=== PATIENT | male | born 1990 | race Caucasian/White ===

== ENCOUNTER 2018-11-03 11:16 | Emergency (ER) | payer OTHER ==
[2018-11-03 11:23] VITALS: BP 100/51; PULSE 60; TEMP 98; BMI 27.4
--- NOTE | 2018-11-03 11:25 | PDOC ---
History of Present Illness - General Chief Complaint: Ear Problem Stated Complaint: ASTHMA/ LT EAR PAIN Time Seen by Provider: 11/03/18 11:22 History Source: Patient Exam Limitations: No Limitations Past History - Travel Traveled outside of the country in the last 30 days: No Close contact w/someone who was outside of country & ill: No - Past Medical History Allergies/Adverse Reactions: Allergies Allergy/AdvReac Type Severity Reaction Status Date / Time No Known Allergies Allergy Verified 11/03/18 11:59 Home Medications: Ambulatory Orders Albuterol 0.083% Nebulizer Dia [Ventolin 0.083% Nebulizer Soln -] 1 neb NEB Q4H #20 vial 11/03/18 Albuterol Sulfate Inhaler - [Ventolin HFA Inhaler -] 1 - 2 inh PO Q4H #1 inhaler 11/03/18 Budesonide/Formeterol Fumarate [SYMBICORT 160/4.5mcg -] 1 inh PO DAILY #1 cannister 11/03/18 Fluticasone Prop 0.05% Nasal [Flonase -] 1 - 2 spray NS DAILY #1 spray.pump 01/16 COPD: No - Immunization History Immunization Up to Date: Yes - Suicide/Smoking/Psychosocial Hx Smoking History: Never smoked Hx Alcohol Use: No Drug/Substance Use Hx: No Review of Systems - Review of Systems Able to Perform ROS?: Yes Comments:: 11/03/18 11:24 CONSTITUTIONAL: Absent: fever, chills, diaphoresis, generalized weakness, malaise, loss of appetite HEENT: Present: sore throat, rhinorrhea, R ear ache. Absent:nasal congestion, throat swelling, difficulty swallowing, mouth swelling, eye pain, visual Changes CARDIOVASCULAR: Absent: chest pain, loss of consciousness, palpitations, irregular heart rate, peripheral edema RESPIRATORY: Present: cough, wheezing Absent: shortness of breath, dyspnea with exertion, orthopnea, stridor, hemoptysis GASTROINTESTINAL: Absent: abdominal pain, abdominal distension, nausea, vomiting, diarrhea, constipation, melena, hematochezia GENITOURINARY: Absent: dysuria, frequency, urgency, hesitancy, hematuria, flank pain, genital pain MUSCULOSKELETAL: Absent: myalgia, arthralgia, joint swelling SKIN: Absent: rash, itching, pallor HEMATOLOGIC/IMMUNOLOGIC: Absent: easy bleeding, easy bruising, lymphadenopathy, frequent infections ENDOCRINE: Absent: unexplained weight gain, unexplained weight loss, heat intolerance, cold intolerance NEUROLOGIC: Absent: headache, focal weakness or paresthesias, dizziness, unsteady gait, seizure, mental status changes, bladder or bowel incontinence PSYCHIATRIC: Absent: anxiety, depression, suicidal or homicidal ideation, hallucinations. \ Is the patient limited Peruvian proficient: No *Physical Exam - Vital Signs Last Vital Signs Temp Pulse Resp BP Pulse Ox 98.0 F 60 17 100/51 L 98 11/03/18 11:20 11/03/18 11:20 11/03/18 11:20 11/03/18 11:20 11/03/18 11:20 - Physical Exam Comments: 11/03/18 11:25 GENERAL: Well developed, well nourished. Awake and alert. No acute distress. HEENT: Normocephalic, atraumatic. PERRLA, EOMI. No conjunctival pallor. Sclera are non- icteric. Moist mucous membranes. Oropharynx is clear. R TM is retracted without erythema. NECK: Supple. Full ROM. No JVD. Carotid pulses 2+ and symmetric, without bruits. No thyromegaly. No lymphadenopathy. CARDIOVASCULAR: Regular rate and rhythm. No murmurs, rubs, or gallops. Distal pulses are 2+ and symmetric. PULMONARY: No evidence of respiratory distress. Lungs with scattered expiratory wheezing b/ l. No rales or rhonchi. SKIN: Warm and dry. Normal capillary refill. No rashes. No jaundice. NEUROLOGICAL: Alert, awake, appropriate. Cranial nerves 2-12 intact. No deficits to light touch and temperature in face, upper extremities and lower extremities. No motor deficits in the in face, upper extremities and lower extremities. Normoreflexic in the upper and lower extremities. Normal speech. Toes are down- going bilaterally. Gait is normal without ataxia. PSYCHIATRIC: Cooperative. Good eye contact. Appropriate mood and affect. Medical Decision Making - Medical Decision Making 11/03/18 13:05 The patient is a 28-year-old male with past medical history of asthma, who presents to the emergency department today for cough and wheezing. Patient states that he has been going on for approximately 4 days. He states he's been using his rescue inhaler more than usual. He also admits to a sore throat, rhinorrhea and right earache. He states that since the weather is changing his symptoms have been acting up. Patient states that he has run out of his Solu- Medrol pump. Denies fevers, chills, productive cough, shortness of breath, nausea, vomiting, chest pain and diarrhea. Pt has been hospitalized for his asthma in 2012. Never been intubated. A/P: Asthma exacerbation On exam right ear TM is retracted without erythema. Lungs with scattered wheezing bilaterally. Rapid strep was obtained; it is negative at this time. 2 DuoNeb's and steroids given. Repeat lung exam now with lungs that are clear to auscultation bilaterally. We'll refill her meds and discharge home with primary care follow-up I discussed the physical exam findings, ancillary test results and final diagnoses with the patient. I answered all of the patient's questions. The patient was satisfied with the care received and felt comfortable with the discharge plan and treatment plan. The Patient agrees to follow up with the primary care physician/specialist within 24-72 hours. Return precautions were given. *DC/Admit/Observation/Transfer Diagnosis at time of Disposition: Asthma exacerbation Qualifiers: Asthma severity: mild Asthma persistence: intermittent Qualified Code(s): J45.21 - Mild intermittent asthma with (acute) exacerbation - Discharge Dispostion Disposition: HOME Condition at time of disposition: Stable Decision to Admit order: No - Referrals Referrals: Janeth Pablo MD [Primary Care Provider] - - Patient Instructions Printed Discharge Instructions: DI for Asthma -- Adult Additional Instructions: You were evaluated for asthma exacerbation today. I suspect that it is due to the change in weather and seasonal ALLERGIES. Please start taking the steroids tomorrow as he got her first dose today. Use the nebulizer at home every 4 hours until your symptoms resolved. You were also given albuterol pump. Do not take the pump in the nebulizer at the same time. Take your Symbicort daily. He may use the Flonase twice a day 1 spray in each nostril to help with the ear pain and sore throat. Take Claritin or Zyrtec daily. This [id number]. Follow-up with her primary care doctor this week. Return to the ER for difficulty breathing, shortness of breath, increased wheezing, fevers, or if you have any changes in your symptoms. - Post Discharge Activity Forms/Work/School Notes: Back to Work
[2018-11-03] MEDS ORDERED: DEXAMETHASONE LIQUID 0.5 MG/5 ML 240 ML BULK BOTTLE PO ONE (11:56)
[2018-11-03] MEDS ORDERED: ALBUTEROL SO4 2.5/IPRATROPIUM 0.5 INH SOL 3 ML VIAL.NEB. NEB ONE ×2 (11:56→12:17)
[2018-11-03] MEDS ORDERED: DEXAMETHASONE SOD PHOSPHATE 10 MG/1 ML VIAL ONE (12:00)
== END 2018-11-03 13:19 | disposition home or self-care (01) ==
LOC: JERFT 11:16
PROC: 3E0F7GC Introduction of Other Therapeutic Substance into Respiratory Tract, Via Natural or Artificial Opening (ICD-10-PCS; principal; 2018-11-03)
PROC: 3E0F7GC Introduction of Other Therapeutic Substance into Respiratory Tract, Via Natural or Artificial Opening (ICD-10-PCS; 2018-11-03)
DX: J45.21 Mild intermittent asthma with (acute) exacerbation (principal)
CPT/HCPCS: 87070; 87880; 94640; 99281-25

== ENCOUNTER 2020-11-03 23:18 | Emergency (ER) | payer OTHER ==
[2020-11-04 00:04] VITALS: BP 122/71; PULSE 75; TEMP 98; BMI 26.6
[2020-11-04] MEDS ORDERED: KETOROLAC TROMETHAMINE 30 MG/1 ML VIAL IM ONE (00:37)
[2020-11-04] MEDS ORDERED: KETOROLAC TROMETHAMINE 30 MG/1 ML VIAL ONE (00:39)
== END 2020-11-04 00:53 | disposition home or self-care (01) ==
LOC: JER 23:18
PROC: 3E0233Z Introduction of Anti-inflammatory into Muscle, Percutaneous Approach (ICD-10-PCS; principal; 2020-11-03)
DX: M54.42 Lumbago with sciatica, left side (principal)
CPT/HCPCS: 99284-25

== ENCOUNTER 2021-04-18 21:10 | Emergency (ER) | payer OTHER ==
[2021-04-18 21:24] VITALS: BP 121/70; PULSE 61; TEMP 97.8; BMI 26.2
== END 2021-04-19 00:30 | disposition home or self-care (01) ==
LOC: JER 21:10 → JERFT 21:10 → JER 04-19 00:30
DX: Z76.0 Encounter for issue of repeat prescription (principal)
CPT/HCPCS: 99281-25